=== PATIENT | female | born 1965 | race Caucasian/White ===

== ENCOUNTER → 2020-12-30 12:31 | Outpatient (CLI) | payer OTHER, SELFPAY ==
--- NOTE | ~2020-12-30 | XR_ITS ---
XR wrist RT w scaphoid DATE: 12/30/2020 13:11 INDICATION: Right wrist pain TECHNIQUE: 6 views COMPARISON: None FINDINGS: No recent fracture or dislocation, periosteal reaction or bone destruction. Accessory ossic les are noted near the ulnar styloid process. Mild osteoarthritic change at the first carpometacarpal joint. No fracture or dislocation or bone destruction of the scaphoid. IMPRESSION: Osteoarthritis at first carpometacarpal joint Reviewed, dictated and finalized at location A. ING SECRETARY
== END ==
PROVIDERS: PCP Family Medicine; Visit Provider Physician Assistant
DX: M19.031 Primary osteoarthritis, right wrist (principal)
CPT/HCPCS: 73110

== ENCOUNTER 2021-04-14 11:07 | Outpatient (CLI) | payer OTHER, SELFPAY ==
--- NOTE | 2021-04-21 16:12 | WPDHOLTEREM ---
Holter/Event Monitor Holter/Event Monitor Date of procedure: 04/14/21 Procedure Type: 24 hour holter monitor Indications: Palpitations Conclusion: 1. 24 hour holter monitor on 04/14/21. 2. Underlying rhythm is sinus rhythm. HR range 51-132 bpm; average HR 73 bpm. 3. There are 31 premature supraventricular complexes, 5 supraventricular couplets and 2 supraventricular triplets. No supraventricular tachycardia. 4. There are 4 premature ventricular complexes. No ventricular tachycardia. 5. No sinoatrial or atrioventricular blocks. No significant pauses greater than 2 seconds. 6. Patient reports an episode of symptom of dizziness which demonstrate sinus rhythm at 74 bpm.
== END 2021-04-14 11:08 | disposition home or self-care (01) ==
PROVIDERS: PCP Family Medicine; Visit Provider Family Medicine
DX: R00.2 Palpitations (principal)
CPT/HCPCS: 93225; 93226

== ENCOUNTER 2023-04-07 10:28 | Outpatient (NON) | payer OTHER, SELFPAY | END 2023-04-07 10:29 | disposition home or self-care (01) | LOC: ANHLAB 04-08 10:29 | PROVIDERS: Visit Provider Nurse Practitioner | DX: D49.2 Neoplasm of unspecified behavior of bone, soft tissue, and skin (principal) | CPT/HCPCS: 88305 ==

== ENCOUNTER 2025-05-28 00:15 | Day surgery (SDC) | payer OTHER, SELFPAY ==
[2025-05-14 15:15] VITALS: BMI 25.4
--- OUTSIDE RECORDS SUMMARY | 2025-05-28 00:18 | XMS_ITS | Encounter Summary ---
Author Organization [facility] Address [address] [place] [address] Care Team Providers Care Truck Washer Name Role Phone Cam Dubon MD Primary Care Provider [phone] [phone] Encounter Details Date Type Department Care Team (Latest Contact Info) Description 07/24/2001 Outpatient Historical HIS [facility] Zeferino Espinosa MD [address] [facility] [address] [place] [address] Lump or mass in breast (Primary Dx) Social History Tobacco Use Types Packs/Day Years Used Date Smoking Tobacco: Never Assessed Comments Unknown Sex and Gender Information Value Date Recorded Sex Assigned at Not on file Legal Sex Female 4:25 AM LOOM DOFFER Gender Identity Not on file Sexual Orientation Not on file documented as of this encounter Plan of Treatment Not on file documented as of this encounter Visit Diagnoses Diagnosis Lump or mass in breast- Primary documented in this encounter Care Teams Truck Washer Relationship Specialty Start Date End Date Cam Dubon MD [address] [place] [address] PCP - General 10/26/00 documented as of this encounter
--- OUTSIDE RECORDS SUMMARY | 2025-05-28 00:18 | XMS_ITS | Clinical Summary ---
Author Organization [facility] Address [address] [place] [address] Phone Care Team Providers Care Dairy Processing Supervisor Name Role Phone Cam Dubon MD Primary Care Provider Allergies No known active allergies Medications BUPROPION HCL (WELLBUTRIN XL ORAL) Take by mouth. Active amitriptyline-ch lordiazePOXIDE (LIMBITROL) 12.5-5 mg Oral Tab Take 2 Tabs by mouth. Active HYDROcodone-acet aminophen (VICODIN) 5-500 mg Oral tablet Take 1-2 Tabs by mouth every 4 hours as needed for Pain. 30 Tab 2 03/22/2011 Active Active Problems Problem Noted Date Diagnosed Date Breast mass 03/22/2011 Encounters Date Type Department Care Team Description 04/30/2025 External Device Data [facility] ABSTRACTION Provider, Abstract 04/02/2025 External Device Data [facility] ABSTRACTION Provider, Abstract 03/27/2025 External Device Data [facility] ABSTRACTION Provider, Abstract 03/27/2025 External Device Data [facility] ABSTRACTION Provider, Abstract from Last 3 Months Family History Medical History Relation Name Comments Breast Cancer Neg Hx Cancer Neg Hx Ovarian Cancer Neg Hx Social History Tobacco Use Types Packs/Day Years Used Date Smoking Tobacco: Never Alcohol Use Standard Drinks/Week Comments Yes 3.3 (1 standard drink = 0.6 oz p ure alcohol) Comments Unknown Sex and Gender Information Value Date Recorded Sex Assigned at Not on file Legal Sex Female 4:25 AM CLIENT SUCCESS DIRECTOR Gender Identity Not on file Sexual Orientation Not on file Occupation Industry Job Start Date Job End Date Not on file Not on file Not on file Not on file Last Filed Vital Signs Vital Sign Reading Time Taken Comments Blood Pressure 119/67 03/22/2011 11:05 AM CDT Pulse 68 03/22/2011 11:05 AM CDT Temperature - - Respiratory Rate 16 03/22/2011 11:05 AM CDT Oxygen Saturation 100% 03/22/2011 11:05 AM CDT Inhaled Oxygen Concentration - - Weight 59 kg (130 lb) 03/18/2011 2:21 PM CDT Height 175.3 cm (5' 9) 03/18/2011 2:21 PM CDT Body Mass Index 19.2 03/18/2011 2:21 PM CDT Plan of Treatment Health Maintenance Due Date Last Done Comments DTAP/TDAP/TD VACCINES (1 - Tdap) 1983 HPV/Cotest (21-29) 1985 CERVICAL CANCER SCREENING 1994 HPV/Cotest (30-65) 1994 PAP SMEAR 1994 COLORECTAL SCREENING 2009 Colorectal Cancer Screening 2009 FIT-DNA Q 3 years 2009 FIT/FOBT Q 1 year 2009 Flex Sig/CT Colonography Q 5 years 2009 ZOSTER VACCINE (1 of 2) 2014 INFLUENZA VACCINE (#1) 2025 BREAST CANCER SCREENING 10/22/2025 10/22/20 24, 10/13/2023, 09/24/2022, Additional history exists RSV VACCINE (60+ or ) (1 - 1-dose 75+ series) 2039 HEPATITIS B VACCINES Aged Out No long er eligible based on patient's age to complete this topic Procedures Procedure Name Priority Date/Time Associated Diagnosis Comments MAMMO 3D TAMARA SCREEN BILAT W OR WO CAD Routine 10/22/2024 11:19 AM CLIENT SUCCESS DIRECTOR Encounter for mammogram to establish baseline mammogram from Last 3 Months or Most Recently Relevant to Health Maintenance Results * MAMMO 3D TAMARA SCREEN BILAT W OR WO CAD (10/22/2024 11:19 AM CLIENT SUCCESS DIRECTOR) Anatomical Region Laterality Modality Breast Bilateral Mammography 10/22/2024 11:1 9 AM CLIENT SUCCESS DIRECTOR Impressions 10/22/2024 11:43 AM CLIENT SUCCESS DIRECTOR IMPRESSION: No mammographic evidence of malignancy in the bilateral breasts. Routine screening mammography is recommended in one year. OVERALL FINAL ASSESSMENT: BI-RADS CATEGORY 1 - Negative DICTATION LOCATION: Padmini Peralta Narrative 10/22/2024 11:43 AM CLIENT SUCCESS DIRECTOR EXAMINATION: BILATERAL SCREENING DIGITAL MAMMOGRAPHY WITH TOMOSYNTHESIS AND CAD DATE: 10/22/2024 11:19 AM HISTORY: Routine screening mammography. COMPARISON: Mammography with dates ranging from 10/13/2023 to 07/24/2019. TECHNIQUE: A bilateral screening mammogram was performed. Low-dose full-field digital breast tomosynthesis examination was performed with 2D and 3D acquisitions. Examination is read in conjunction with computer aided detection. BREAST COMPOSITION: There are scattered areas of fibroglandular density. FINDINGS: There are no suspicious masses, suspicious calcifications, or other suspicious findings in either breast. There has been no suspicious interval change. Computer aided detection was used in the interpretation of this examination. Procedure Note Vikas Pretty MD - 10/22/2024 EXAMINATION: BILATERAL SCREENING DIGITAL MAMMOGRAPHY WITH TOMOSYNTHESIS AND CAD DATE: 10/22/2024 11:19 AM HISTORY: Routine screening mammography. COMPARISON: Mammography with dates ranging from 10/13/2023 to 07/24/2019. TECHNIQUE: A bilateral screening mammogram was performed. Low-dose full-field digital breast tomosynthesis examination was performed with 2D and 3D acquisitions. Examination is read in conjunction with computer aided detection. BREAST COMPOSITION: There are scattered areas of fibroglandular density. FINDINGS: There are no suspicious masses, suspicious calcifications, or other suspicious findings in either breast. There has been no suspicious interval change. Computer aided detection was used in the interpretation of this examination. IMPRESSION: No mammographic evidence of malignancy in the bilateral breasts. Routine screening mammography is recommended in one year. OVERALL FINAL ASSESSMENT: BI-RADS CATEGORY 1 - Negative DICTATION LOCATION: Padmini Peralta us Zeferino Santos MD MAMMO ORDERABLES Final Resul t from Last 3 Months or Most Recently Relevant to Health Maintenance Insurance [place] [id number] Advance Directives For more information, please contact: [phone] * Full Code (Latest Code Status on File) Date Activated Date Inactivated Comments 03/22/2011 11:04 AM 03/22/2011 1:16 PM * Full Code Date Activated Date Inactivated Comments 03/22/2011 10:01 AM 03/22/2011 11:04 AM Care Teams Dairy Processing Supervisor Relationship Specialty Start Date End Date Cam Dubon MD [address] [place] [address] PCP - General 10/26/00
--- OUTSIDE RECORDS SUMMARY | 2025-05-28 00:18 | XMS_ITS | Encounter Summary ---
Author Organization [facility] Address [address] [place] [address] Care Team Providers Care Annealer Helper Name Role Phone Cam Dubon MD Primary Care Provider [phone] Encounter Details Date Type Department Care Team (Latest Contact Info) Description 12/18/2001 Outpatient Historical HIS [facility] Zeferino Espinosa MD [address] [facility] [address] [place] [address] LUMP OR MASS IN BREAST (Primary Dx) Social History Tobacco Use Types Packs/Day Years Used Date Smoking Tobacco: Never Assessed Comments Unknown Sex and Gender Information Value Date Recorded Sex Assigned at Not on file Legal Sex Female 4:25 AM PIPE STRIPPER Gender Identity Not on file Sexual Orientation Not on file documented as of this encounter Plan of Treatment Not on file documented as of this encounter Visit Diagnoses Diagnosis Lump or mass in breast- Primary documented in this encounter Care Teams Annealer Helper Relationship Specialty Start Date End Date Cam Dubon MD [address] [place] [address] PCP - General 10/26/00 documented as of this encounter
--- OUTSIDE RECORDS SUMMARY | 2025-05-28 00:18 | XMS_ITS | Encounter Summary ---
Author Organization [employer] Address [address] [place] [address] Care Team Providers Care Cloth Bleaching Range Operator Chief Name Role Phone Cam Dubon MD Primary Care Provider [phone] Encounter Details Date Type Department Care Team (Latest Contact Info) Description 03/14/1999 Inpatient Historical HIS PAT[facility] IN A BED Zeferino Santos MD [address] [facility] [address] [place] [address] Other and unspecified cord entanglement, without mention of compression, complicating labor and delivery, delivered (Primary Dx) Social History Tobacco Use Types Packs/Day Years Used Date Smoking Tobacco: Never Assessed Comments Unknown Sex and Gender Information Value Date Recorded Sex Assigned at Not on file Legal Sex Female 4:25 AM PULLER THROUGH Gender Identity Not on file Sexual Orientation Not on file documented as of this encounter Plan of Treatment Not on file documented as of this encounter Visit Diagnoses Diagnosis Other and unspecified cord entanglement, without mention of compression, complicating labor and delivery, delivered- Primary documented in this encounter Care Teams Cloth Bleaching Range Operator Chief Relationship Specialty Start Date End Date Cam Dubon MD [address] [place] [id number] PCP - General 10/26/00 documented as of this encounter
--- OUTSIDE RECORDS SUMMARY | 2025-05-28 00:18 | XMS_ITS | Encounter Summary ---
Author Organization [facility] Address [address] [place] [address] Care Team Providers Care In Home Baby Sitter Name Role Phone Cam Dubon MD Primary Care Provider [phone] Encounter Details Date Type Department Care Team (Latest Contact Info) Description 02/03/2006 Outpatient Historical HIS [facility] Zeferino Espinosa MD [address] [facility] [address] [place] [address] Other Screening Mammogram (Primary Dx) Social History Tobacco Use Types Packs/Day Years Used Date Smoking Tobacco: Never Assessed Comments Unknown Sex and Gender Information Value Date Recorded Sex Assigned at Not on file Legal Sex Female 4:25 AM COOKING APPLIANCE REPAIR TECHNICIAN Gender Identity Not on file Sexual Orientation Not on file documented as of this encounter Plan of Treatment Not on file documented as of this encounter Visit Diagnoses Diagnosis Other screening mammogram- Primary documented in this encounter Care Teams In Home Baby Sitter Relationship Specialty Start Date End Date Cam Dubon MD [address] [place] [address] PCP - General 10/26/00 documented as of this encounter
--- OUTSIDE RECORDS SUMMARY | 2025-05-28 00:18 | XMS_ITS | Encounter Summary ---
Author Organization [facility] Address [address] [place] [address] Care Team Providers Care Lone Lead Lineman Name Role Phone Cam Dubon MD Primary Care Provider [phone] Encounter Details Date Type Department Care Team (Latest Contact Info) Description 03/11/2009 Outpatient Historical HIS [facility] Chantel Espinosa MD [address] [facility] [address] [place] [address] Abnormal Mammogram, Unspecified Social History Tobacco Use Types Packs/Day Years Used Date Smoking Tobacco: Never Assessed Comments Unknown Sex and Gender Information Value Date Recorded Sex Assigned at Not on file Legal Sex Female 4:25 AM COLORING MACHINE OPERATOR Gender Identity Not on file Sexual Orientation Not on file documented as of this encounter Plan of Treatment Not on file documented as of this encounter Procedures Procedure Name Priority Date/Time Associated Diagnosis Comments MAMMO DIAGNOSTIC UNI RIGHT W OR WO CAD Routine 03/11/2009 12:18 PM CDT documented in this encounter Results * MAMMO DIGITAL DIAG UNI RIGHT (03/11/2009 12:18 PM CDT) Anatomical Region Laterality Modality Breast Right Other 03/11/2009 12:1 8 PM CDT Narrative 03/12/2009 8:26 AM CDT [facility] [address] [place], [place] [address] Admit Date: 03/11/2009 YUN PARRY Sex: F Admit Prov: CHANTEL CERVANTES Date: 1965 Primary Care Prov: CAM DUBON CMRN: [id number] Room: BARBRA SSN: [id number] IMAGING SERVICES Ordering Prov: CHANTEL CERVANTES Accession Number: [id number] Interpretation RIGHT DIAGNOSTIC DIGITAL MAMMOGRAMS WITH COMPUTER ASSISTED DIAGNOSIS 03/11/2009 Reason for this examination: Abnormal screening study The screening mammograms from 03/05/2009 show possible mass in the upper outer quadrant of the right breast Diagnostic images were obtained including compression spot views. The parenchyma is moderately dense. There is no discrete mass, distortion, malignant calcifications or other sign of malignancy. The images were reviewed using the CAD system. The area of concern on screening mammograms is much less apparent. This now is similar in appearance to mammograms from 2006 and 2007. This is thought to be fibroglandular tissue. Conclusion: No mammographic evidence of malignancy Area of concern on the screening mammograms is not reproducible. Recommendations: The patient should resume screening mammography in February 2010 Overall assessment: BIRADS category 1 - Negative Assessment BIRADS: 1-Negative Recommendation: Normal interval follow-up Dictated by: JAIME MENDEZ Electronically signed by: JAIME MENDEZ 03/12/2009 08:26 Transcribed: 03/11/2009 21:44 AMK Procedure Note Jaime Mendez MD - 03/12/[address] [address] Admit Date: 03/11/2009 YUN PARRY Sex: F Admit Prov: CHANETL CERVANTES Date: 1965 Primary Care Prov: CAM DUBON CMRN: [id number] Room: CURLYShweta SSN: [id number] IMAGING SERVICES Ordering Prov: CHANTEL CERVANTES Interpretation RIGHT DIAGNOSTIC DIGITAL MAMMOGRAMS WITH COMPUTER ASSISTEDDIAGNOSIS 03/11/2009 Reason for this examination: Abnormal screening study The screening mammograms from 03/05/2009 show possible mass in theupper outer quadrant of the right breast Diagnostic images were obtained including compression spot views.The parenchyma is moderately dense. There is no discrete mass,distortion, malignant calcifications or other sign of malignancy. The imageswere reviewed using the CAD system. The area of concern on screening mammograms is much less apparent.This now is similar in appearance to mammograms from 2006 and 2007. This isthought to be fibroglandular tissue. Conclusion: No mammographic evidence of malignancy Area of concern on the screening mammograms is not reproducible. Recommendations: The patient should resume screening mammography inApril 2009 Overall assessment: BIRADS category 1 - Negative Assessment BIRADS: 1-Negative Recommendation: Normal interval follow-up Dictated by: JAIME MENDEZ Electronically signed by: JAIME MENDEZ 03/12/2009 08:26 Transcribed: 03/11/2009 21:44 AMK us Chantel Cervantes MD MAMMO ORDERABLES Final Resul t documented in this encounter Visit Diagnoses Diagnosis Abnormal mammogram, unspecified documented in this encounter Care Teams Lone Lead Lineman Relationship Specialty Start Date End Date Cam Dubon MD [address] [address] PCP - General 10/26/00 documented as of this encounter
--- OUTSIDE RECORDS SUMMARY | 2025-05-28 00:18 | XMS_ITS | Encounter Summary ---
Author Organization [facility] Address [address] [place] [address] Care Team Providers Care Anode Rebuilder Name Role Phone Cam Dubon MD Primary Care Provider [phone] Encounter Details Date Type Department Care Team (Latest Contact Info) Description 02/21/2007 Outpatient Historical HIS [facility] Zeferino Espinosa MD [address] [facility] [address] [place] [address] Other Screening Mammogram (Primary Dx) Social History Tobacco Use Types Packs/Day Years Used Date Smoking Tobacco: Never Assessed Comments Unknown Sex and Gender Information Value Date Recorded Sex Assigned at Not on file Legal Sex Female 4:25 AM INTELLECTUAL PROPERTY LEGAL ASSISTANT Gender Identity Not on file Sexual Orientation Not on file documented as of this encounter Plan of Treatment Not on file documented as of this encounter Visit Diagnoses Diagnosis Other screening mammogram- Primary documented in this encounter Care Teams Anode Rebuilder Relationship Specialty Start Date End Date Cam Dubon MD [address] [place] [address] PCP - General 10/26/00 documented as of this encounter
--- OUTSIDE RECORDS SUMMARY | 2025-05-28 00:18 | XMS_ITS | Encounter Summary ---
Author Organization [facility] Address [address] [place] [address] Care Team Providers Care Product Evangelist Name Role Phone Cam Dubon MD Primary Care Provider [phone] Encounter Details Date Type Department Care Team (Latest Contact Info) Description 11/29/2002 Outpatient Historical HIS [facility] Zeferino Espinosa MD [address] [facility] [address] [place] [address] SCREENING MAMM-MAILG NEOPL-OTHER (Primary Dx) Social History Tobacco Use Types Packs/Day Years Used Date Smoking Tobacco: Never Assessed Comments Unknown Sex and Gender Information Value Date Recorded Sex Assigned at Not on file Legal Sex Female 4:25 AM TERRAZZO POLISHER Gender Identity Not on file Sexual Orientation Not on file documented as of this encounter Plan of Treatment Not on file documented as of this encounter Visit Diagnoses Diagnosis Other screening mammogram- Primary documented in this encounter Care Teams Product Evangelist Relationship Specialty Start Date End Date Cam Dubon MD [address] [place] [address] PCP - General 10/26/00 documented as of this encounter
--- OUTSIDE RECORDS SUMMARY | 2025-05-28 00:18 | XMS_ITS | Encounter Summary ---
Author Organization [facility] Address [address] [place] [address] Care Team Providers Care Felt Cementer Name Role Phone Cam Dubon MD Primary Care Provider [phone] Encounter Details Date Type Department Care Team (Latest Contact Info) Description 02/26/2008 Outpatient Historical HIS [facility] DEVYN Cervantes, Chantel Pfeiffer MD [address] [facility] [address] [place] [address] Other Screening Mammogram Social History Tobacco Use Types Packs/Day Years Used Date Smoking Tobacco: Never Assessed Comments Unknown Sex and Gender Information Value Date Recorded Sex Assigned at Not on file Legal Sex Female 4:25 AM PRESS SMITH HELPER Gender Identity Not on file Sexual Orientation Not on file documented as of this encounter Plan of Treatment Not on file documented as of this encounter Procedures Procedure Name Priority Date/Time Associated Diagnosis Comments MAMMO SCREEN BILAT W OR WO CAD Timed Study 02/26/2008 12:24 PM CDT documented in this encounter Results * MAMMO DIGITAL SCREEN BILAT (02/26/2008 12:24 PM CDT) Anatomical Region Laterality Modality Breast Bilateral Other 02/26/2008 12:2 4 PM CDT Narrative 02/27/2008 8:10 AM CDT [facility] [address] [place], [place] [address] Admit Date: 02/26/2008 YUN PARRY Sex: F Admit Prov: PIGNOTTI, BLASE J Date: 1965 Primary Care Prov: CAM DUBON CMRN: [id number] Room: BARBRA N: [id number] IMAGING SERVICES Ordering Prov: CHANTEL CERVANTES Accession Number: [id number] Interpretation BILATERAL SCREENING DIGITAL MAMMOGRAMS WITH COMPUTER ASSISTED DIAGNOSIS, 02/26/2008 Clinical History: Screening. Findings: Craniocaudal and mediolateral oblique compression views of the breasts on 02/26/2008 are compared to 02/21/2007 and 02/03/2006. The breast parenchymal pattern demonstrates scattered fibroglandular densities. No suspicious dominant mass lesions, clustered microcalcifications, or architectural distortion is seen. A circumscribed nodular density is noted in the posterior right upper-outer quadrant, unchanged. Overall, there is no significant interval change. The CAD system was utilized. Impression: No radiographic evidence of malignancy. Recommendation: Routine yearly followup mammography is recommended. Assessment BIRADS: 2-Benign finding Recommendation: Normal interval follow-up Dictated by: OPAL KELLER Electronically signed by: OPAL KELLER 02/27/2008 08:10 Transcribed: 02/26/2008 20:14 DKT Procedure Note Opal Keller MD - 02/27/2008 [address] [address] [place], [place] [address] Admit Date: 02/26/2008 YUN PARRY Sex: F Admit Prov: CHANTEL CERVANTES Date: 1965 Primary Care Prov: CAM DUBON CMRN: [id number] Room: BARBRA N: [id number] IMAGING SERVICES Ordering Prov: CHANTEL CERVANTES Interpretation BILATERAL SCREENING DIGITAL MAMMOGRAMS WITH COMPUTER ASSISTEDDIAGNOSIS, 02/26/2008 Clinical History: Screening. Findings: Craniocaudal and mediolateral oblique compression views of thebreasts on 02/26/2008 are compared to 02/21/2007 and 02/03/2006. The breastparenchymal pattern demonstrates scattered fibroglandular densities. Nosuspicious dominant mass lesions, clustered microcalcifications, orarchitectural distortion is seen. A circumscribed nodular density is noted in the posterior right upper-outer quadrant, unchanged. Overall, there isno significant interval change. The CAD system was utilized. Impression: No radiographic evidence of malignancy. Recommendation: Routine yearly followup mammography is recommended. Assessment BIRADS: 2-Benign finding Recommendation: Normal interval follow-up Dictated by: OPAL KLELER Electronically signed by: OPAL KELLER 02/27/200808:10 Transcribed: 02/26/2008 20:14 DKT us Chantel Cervantes MD MAMMO ORDERABLES Final Resul t documented in this encounter Visit Diagnoses Diagnosis Other screening mammogram documented in this encounter Care Teams Felt Cementer Relationship Specialty Start Date End Date Cam Dubon MD [address] [place] [address] PCP - General 10/26/00 documented as of this encounter
--- OUTSIDE RECORDS SUMMARY | 2025-05-28 00:18 | XMS_ITS | Encounter Summary ---
Author Organization [facility] Address [address] [place] [address] Care Team Providers Care Deaf Interpreter Name Role Phone Cam Dubon MD Primary Care Provider [phone] Encounter Details Date Type Department Care Team (Latest Contact Info) Description 01/29/2004 Outpatient Historical HIS [facility] Zeferino Espinosa MD [address] [facility] [address] [place] [address] SCREENING MAMM-MAILG NEOPL-OTHER (Primary Dx) Social History Tobacco Use Types Packs/Day Years Used Date Smoking Tobacco: Never Assessed Comments Unknown Sex and Gender Information Value Date Recorded Sex Assigned at Not on file Legal Sex Female 4:25 AM HAM PUMPER Gender Identity Not on file Sexual Orientation Not on file documented as of this encounter Plan of Treatment Not on file documented as of this encounter Visit Diagnoses Diagnosis Other screening mammogram- Primary documented in this encounter Care Teams Deaf Interpreter Relationship Specialty Start Date End Date Cam Dubon MD [address] [place] [address] PCP - General 10/26/00 documented as of this encounter
--- OUTSIDE RECORDS SUMMARY | 2025-05-28 00:18 | XMS_ITS | Encounter Summary ---
Author Organization [facility] Address [address] [place] [address] Care Team Providers Care Car Shifter Name Role Phone Cam Dubon MD Primary Care Provider [phone] Encounter Details Date Type Department Care Team (Latest Contact Info) Description 02/03/2005 Outpatient Historical HIS [facility] Zeferino Espinosa MD [address] [facility] [address] [place] [address] SCREENING MAMM-MAILG NEOPL-OTHER (Primary Dx) Social History Tobacco Use Types Packs/Day Years Used Date Smoking Tobacco: Never Assessed Comments Unknown Sex and Gender Information Value Date Recorded Sex Assigned at Not on file 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
--- OUTSIDE RECORDS SUMMARY | 2025-05-28 00:18 | XMS_ITS | Encounter Summary ---
Author Organization [email or web address] Address 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
--- OUTSIDE RECORDS SUMMARY | 2025-05-28 00:18 | XMS_ITS | Encounter Summary ---
Author Organization [facility] Address 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 [place], [place] [address] Admit Date: 03/05/2009 YUN PARRY Sex: F Admit Prov: CHANTEL CERVANTES Date: 1965 Primary Care Prov: CAM DUBON CMRN: [id number] Room: BARBRA N: [id number] IMAGING SERVICES Ordering Prov: CHANTEL CERVANTES Accession Number: [id number] Interpretation BILATERAL SCREENING DIGITAL MAMMOGRAMS WITH COMPUTER ASSISTED DIAGNOSIS 03/05/2009 History: Annual screening Findings: Comparison study is dated 02/26/2008. There are scattered fibroglandular tissues bilaterally. A focal asymmetric density in the upper-outer quadrant of the right breast is seen at the posterior depth. It is not well visualized on the previous study. No malignant calcifications or architectural distortion is seen. The left breast is unremarkable. The images were reviewed using the CAD system. IMPRESSION: A focal asymmetric density in the right breast. Recommendations: Spot compression views and ultrasound. Assessment BIRADS: 0-Incomplete: Need additional imaging evaluation Recommendation: Spot compression Ultrasound Dictated by: MARYSOL HARDIN Electronically signed by: MARYSOL HARDIN 03/05/2009 16:44 Transcribed: 03/05/2009 16:41 AMK Procedure Note Marysol Enamorado MD - 03/05/2009 [facility] [address] [place], [place] [address] Admit Date: 03/05/2009 YUN PARRY Sex: F Admit Prov: CHANTEL CERVANTES Date: 1965 Primary Care Prov: CAM DUBON CMRN: [id number] Room: BARBRA N: [id number] IMAGING SERVICES Ordering Prov: CHANTEL CERVANTES Interpretation BILATERAL SCREENING DIGITAL MAMMOGRAMS WITH COMPUTER ASSISTEDDIAGNOSIS 03/05/2009 History: Annual screening Findings: Comparison study is dated 02/26/2008. There are scattered fibroglandular tissues bilaterally. A focal asymmetric density inthe upper-outer quadrant of the right breast is seen at the posteriordepth. It is not well visualized on the previous study. No malignantcalcifications or architectural distortion is seen. The left breast is unremarkable.The images were reviewed using the CAD system. IMPRESSION: A focal asymmetric density in the right breast. Recommendations: Spot compression views and ultrasound. Assessment BIRADS: 0-Incomplete: Need additional imagingevaluation Recommendation: Spot compression Ultrasound Dictated by: MARYSOL HARDIN Electronically signed by: MARYSOL HARDIN 03/05/2009 16:44 Transcribed: 03/05/2009 16:41 AMK us Chantel Cervantes MD MAMMO ORDERABLES Final Resul t documented in this encounter Visit Diagnoses Diagnosis Other screening mammogram documented in this encounter Care Teams Kiln Door Builder Relationship Specialty Start Date End Date Cam Dubon MD [address] [place] [id number] PCP - General 10/26/00 documented as of this encounter
--- OUTSIDE RECORDS SUMMARY | 2025-05-28 00:18 | XMS_ITS | Clinical Summary ---
Author Organization [facility] Address [address] [place] [address] [place] [address] Care Team Providers Care Solar Business Developer Name Role Phone Ambrose Dubon MD Primary Care Provider [phone] Source Comments [facility],non-owned Affiliates and Associated Physician Practices is amultiple site organization consisting of ambulatory clinics and hospital sitesin [place], [place], [place] and [place]. This disclosure is being madepursuant to the Care Everywhere program and may not contain all information available regarding this patient. Last updated 18.[facility] Allergies No known active allergies Medications * Be aware that medications may not be up to date on this document. Alwaysverify current medications with the patient. buPROPion XL 24hr (WELLBUTRIN-XL) 300 MG tablet Take 300 mg by mouth once daily 9 Active omeprazole (PRILOSEC) 20 MG capsule 9 Active clindamycin (CLEOCIN) 1 % lotionIndicatio ns:Acne vulgaris Apply to affected area daily. 30 day supply. 60 mL 11 0 Active chlordiazePOXID E-amitriptyline (LIMBITROL DS) 10-25 MG tablet Take 1 tablet by mouth nightly as needed For sleep. 1 Active liothyronine (CYTOMEL) 5 MCG tablet Take 1 tablet by mouth once daily 1 Active bimatoprost (LATISSE) 0.03 % solution 1 drop by Apply externally route once daily 5 mL 4 1 Active spironolactone (ALDACTONE) 100 MG tabletIndicatio ns:Acne vulgaris Take 2 (two) tablets by mouth once daily 60 tablet 3 1 Active Tretinoin (ALTRENO) 0.05 % lotionIndicatio ns:Acne vulgaris Apply pea sized amount to face nightly 45 g 11 1 Active Active Problems Problem Noted Date Diagnosed Date Acne scarring 10/20/2021 Lentigines 01/12/2021 Assessment & Plan (01/12/2021 12:22 PM SALES PLANNING ANALYST): - Explained benign nature, reassurance provided. - Advised pt on consistent sunscreen use (SPF > 30, UVA + UVB). García angioma 01/12/2021 Assessment & Plan (01/12/2021 12:23 PM SALES PLANNING ANALYST): - Benign, reassurance Carpal tunnel syndrome of right wrist 03/15/2019 Tension type headache 03/21/2018 Other seborrheic keratosis 01/06/2018 Assessment & Plan (01/12/2021 12:20 PM SALES PLANNING ANALYST): - Benign, reassurance Melanocytic nevi of lower extremity or hip 01/06 Melanocytic nevi of trunk 01/06/2018 Melanocytic nevi of unspecif ied upper limb, including shoulder 01/06/2018 Nevus, non-neoplastic 01/06/2018 Multiple benign melanocytic nevi of upper extremity, lower extremity, and trunk 01/06/2018 Assessment & Plan (01/12/2021 12:21 PM SALES PLANNING ANALYST): - Benign, reassurance Acne vulgaris 03/31/2016 Assessment & Plan (01/12/2021 12:22 PM SALES PLANNING ANALYST): Mild - Well-controlled on current regimen; patient satisfied with treatment - Continue spironolactone 200mg daily - Continue clindamycin 1% lotion daily - Continue Altreno lotion every other night - Continue non-comedogenic skin care products History of basal cell carcinoma (BCC) 09/10/2014 Assessment & Plan (01/12/2021 12:22 PM SALES PLANNING ANALYST): - No evidence of recurrence - Q6mos FBSE Migraine, unspecified, not i ntractable, without status migrainosus 07/30/2014 Basal cell carcinoma of skin of other parts of f johan 03/05/2013 Dissection of carotid artery 03/05/2013 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 05/11/2012 Breast mass 03/22/2011 Resolved Problems Problem Noted Date Diagnosed Date Resolved Date Constipation 03/15/2019 02/08/2020 Immunizations Immunization Administration Dates Next Due INFLUENZA VACCINE 10/04/2021,2020,09/21/20 19 Family History Medical History Relation Name Comments Cancer Father Status: d None Known Mother Status: Alive Cancer - Skin, Melanoma Neg Hx Cancer - Skin, Non Melanoma Neg Hx Relation Name Status Comments Father Mother Social History Tobacco Use Types Packs/Day Years Used Date Smoking Tobacco: Former Smokeless Tobacco: Never Alcohol Use Standard Drinks/Week Comments Yes 0 (1 standard drink = 0.6 oz pur e alcohol) Comments Unknown Sex and Gender Information Value Date Recorded Sex Assigned at Not on file Legal Sex Female 5:24 PM SALES PLANNING ANALYST Gender Identity Not on file Sexual Orientation Not on file Plan of Treatment Health Maintenance Due Date Last Done Comments COLOGUARD (AGES 45-75) - COLON CA SCREENING 1965 COLON MONITORING 1965 COLONOSCOPY - COLON CA SCREENING 1964 CT COLONOGRAPHY - COLON CA SCREENING 1964 Colorectal Cancer Screening 1964 FIT - COLON CA SCREENING 1964 FLEX SIG - COLON CA SCREENING 1964 LIPID TESTING 1964 HIV SCREENING 1979 HEPATITIS C SCREENING 09/10/1982 DTAP/TDAP/TD VACCINES (1 - Tdap) 1983 PNEUMOCOCCAL VACCINE 50+ (1 of 1 - PCV) 2014 ZOSTER VACCINE (1 of 2) 2014 MAMMOGRAM 07/29/2022 07/29/2020 (Done Outside Per Report) COVID-19 VACCINE (2 - 2023- season) 2024 01/13/2021 DEPRESSION SCREENING 11/07/2024 INFLUENZA VACCINE (#1) 2025 , 2020, 09/21/2019, Additional history exists Respiratory Syncytial Virus (RSV) Vaccine Pt: or over 60 yrs (1 - 1-dose 75+ series) 2039 HEPATITIS B VACCINE Aged Out No longe r eligible based on patient's age to complete this topic HIB VACCINE Aged Out No longer eligi ble based on patient's age to complete this topic HPV VACCINE Aged Out No longer eligi ble based on patient's age to complete this topic MENINGOCOCCAL (Group B) VACCINE SHARED DECISION-MAKING Aged Out No longer eligible based on patient's age to complete this topic MENINGOCOCCAL GROUPS A/C/Y/W VACCINE Aged Out No longer eligible based on patient's age to complete this topic Insurance [employer] [place] [id number] [facility] [employer] [place] [id number] [facility] Care Teams Solar Business Developer Relationship Specialty Start Date End Date Ambrose Dubon MD [address] [place] [address] PCP - General 05/16/18
--- OUTSIDE RECORDS SUMMARY | 2025-05-28 00:18 | XMS_ITS | Encounter Summary ---
Author Organization [facility] Address 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
--- OUTSIDE RECORDS SUMMARY | 2025-05-28 00:18 | XMS_ITS | Encounter Summary ---
Author Organization [facility] Address [address] [facility] Attn: [place] [address] Care Team Providers Care Frequency Checker Name Role Phone Cam Dubon MD Primary Care Provider [phone] Encounter Details Date Type Department Care Team (Late st Contact Info) Description 07/08/1993 Outpatient Historical Zeferino Santos MD [address] [facility] [address] [place] [address] Social History Tobacco Use Types Packs/Day Years Used Date Smoking Tobacco: Never Assessed Comments Unknown Sex and Gender Information Value Date Recorded Sex Assigned at Not on file 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
[2025-05-28 11:39] VITALS: BP 118/50; PULSE 72; RESP 18; TEMP 37.1; O2SAT 100
[2025-05-28] MEDS: LACTATED RINGERS 1,000 ML 150 ML IV CONT (11:43)
--- NOTE | 2025-05-28 12:35 | P.PNAN_ITS ---
Anes - Initial Pre Proc Eval Procedure: Operation Date: 05/28/25 12:30 Proposed Procedures p Screening Colonoscopy - Ganesh Reece MD Date/Time: 05/28/25 12:35 Surgeon: Ganesh Reece MD Pre Op Diagnosis: Encounter for screening for malignant neoplasm of Patient Data Age: 59 Gender: F Height: 1.75 m Weight: 58.1 kg Last Vital Signs Temp 98.7 F 05/28/25 11:39 Pulse 72 05/28/25 11:39 Resp 18 05/28/25 11:39 BP 118/50 L 05/28/25 11:39 Pulse Ox 100 05/28/25 11:39 O2 Del Method Room Air 05/28/25 11:39 Allergies Allergy/AdvReac Type Severity Reaction Status Date / Time No Known Allergies Allergy Verified 05/28/25 11:35 Home Medications ?Medication ?Instructions ?Recorded ?Confirmed ?Type aspirin 325 mg tablet 325 mg PO .COMPLEX 03/15/22 05/28/25 History bimatoprost 0.03 % drops with 1 applic topical QHS #5 mL 11/09/22 05/28/25 Rx applicator, eyelash base (Latisse) vitamin B complex 1 tablet PO .QOD 05/18/24 05/28/25 History amitriptyline-chlordiazepoxide 25 1 tablet PO BID PRN migraine 02/05/25 05/14/25 Rx mg-10 mg tablet headache #180 tabs levothyroxine 25 mcg tablet 25 mcg PO DAILY 02/21/25 05/28/25 History liothyronine 25 mcg tablet 25 mcg PO DAILY 02/21/25 05/28/25 History tretinoin 0.05 % topical cream 1 applic topical QHS #45 grams 02/26/25 05/28/25 Rx omeprazole 20 mg capsule,delayed 20 mg PO DAILY #90 caps 04/10/25 05/28/25 Rx release famotidine 20 mg tablet (Acid 20 mg PO DAILY 05/14/25 05/28/25 History Controller) semaglutide (weight loss) 0.25 0.25 mg subcut WEEKLY 05/14/25 05/28/25 History mg/0.5 mL subcutaneous pen injector Patient hx anesthesia problems: none Family hx anesthesia problems: none Results Review: All pre-operative results and documents have been reviewed as part of the pre- operative evaluation. [facility] Past Medical History Medical History Wrist pain, acute Carotid artery dissection with hx of stroke 2011 Family History Family History Grandparent Diabetes mellitus Father Family history of lymphoma Family history of Hodgkin's lymphoma Social History Social History Smoking packs per day: 1 Smoking cigarettes per day: 20.0 Years smoked: 15 Smoking pack-years: 15.00 Smoking status: Former smoker Tobacco type: cigarettes Alcohol intake: current Drinks per week: 4 Alcohol use details: wine Substance use: never Substance use type: does not use Do You Feel Safe in your Home?: Yes Lack of Transportation: No Lack of Food: Never True Current Housing: I Have Housing Concerned About Future Housing: No Difficulty Paying Gas/Electric Bills: No Difficulty Paying for Meds: No Currently Unemployed: No Education: Master's Degree or Higher Difficulty w/ Childcare or Family Care: No Living arrangements: with family Spiritual care concerns: No Anes - Eval Final PreProcedure Day of Procedure 05/28/25 12:35 Patient weight: normal Lungs: normal air movement Airway: Mallampati scale class II Neurological: alert and oriented Last oral intake: >/= 8 hours ASA classification: II Emergent: no Anesthetic plan: proceed Anesthesia type and monitoring: general GIVS and standard monitoring Results Review: All pre-operative results and documents have been reviewed as part of the pre- operative evaluation. Hypothyroidism, ex smoker, quit 1999. Very active w P90X, no cp or sob. Informed Consent: The patient's anesthetic plan and its attendant risks and benefits were discussed with the patient/family/POA. Questions were solicited and answers provided to the satisfaction of the patient/family/POA.
--- NOTE | 2025-05-28 12:40 | PM.IMHP ---
H&P: HPI History of Present Illness Date/Time: 05/28/25 12:40 Chief Complaint: Screening colonoscopy Narrative: This is the patient's first colonoscopy. There are no GI symptoms and there is no family history of colorectal cancer. Review of Systems Review of Systems: All systems reviewed & are unremarkable except as noted in HPI and below PMFSH Past Medical History Medical History Wrist pain, acute Carotid artery dissection with hx of stroke 2011 Family History Family History Grandparent Diabetes mellitus Father Family history of lymphoma Family history of Hodgkin's lymphoma Social History Social History Smoking packs per day: 1 Smoking cigarettes per day: 20.0 Years smoked: 15 Smoking pack-years: 15.00 Smoking status: Former smoker Tobacco type: cigarettes Alcohol intake: current Drinks per week: 4 Alcohol use details: wine Substance use: never Substance use type: does not use Do You Feel Safe in your Home?: Yes Lack of Transportation: No Lack of Food: Never True Current Housing: I Have Housing Concerned About Future Housing: No Difficulty Paying Gas/Electric Bills: No Difficulty Paying for Meds: No Currently Unemployed: No Education: Master's Degree or Higher Difficulty w/ Childcare or Family Care: No Living arrangements: with family Spiritual care concerns: No Meds Home Medications and Allergies Home Medications ?Medication ?Instructions ?Recorded ?Confirmed ?Type aspirin 325 mg tablet 325 mg PO .COMPLEX 03/15/22 05/28/25 History bimatoprost 0.03 % drops with 1 applic topical QHS #5 mL 11/09/22 05/28/25 Rx applicator, eyelash base (Latisse) vitamin B complex 1 tablet PO .QOD 05/18/24 05/28/25 History amitriptyline-chlordiazepoxide 25 1 tablet PO BID PRN migraine 02/05/25 05/14/25 Rx mg-10 mg tablet headache #180 tabs levothyroxine 25 mcg tablet 25 mcg PO DAILY 02/21/25 05/28/25 History liothyronine 25 mcg tablet 25 mcg PO DAILY 02/21/25 05/28/25 History tretinoin 0.05 % topical cream 1 applic topical QHS #45 grams 02/26/25 05/28/25 Rx omeprazole 20 mg capsule,delayed 20 mg PO DAILY #90 caps 04/10/25 05/28/25 Rx release famotidine 20 mg tablet (Acid 20 mg PO DAILY 05/14/25 05/28/25 History Controller) semaglutide (weight loss) 0.25 0.25 mg subcut WEEKLY 05/14/25 05/28/25 History mg/0.5 mL subcutaneous pen injector Allergies Allergy/AdvReac Type Severity Reaction Status Date / Time No Known Allergies Allergy Verified 05/28/25 11:35 Vital Signs Vital Signs - 24 hr 05/28/25 11:39 Temperature 98.7 F Pulse Rate 72 Respiratory Rate 18 Blood Pressure 118/50 L Pulse Oximetry 100 Oxygen Delivery Room Air Exam Const: General: cooperative and healthy appearing Resp: Effort & Inspection: normal respiratory effort and able to speak in complete sentences Auscultation: clear to auscultation bilaterally Cardio: Rate: regular rate Rhythm: regular rhythm GI: Inspection: normal to inspection GI Palp: No No hepatosplenomegaly present Auscultation: normal bowel sounds Rectal Exam: deferred Skin: General skin exam: normal color Psych: Appearance: grossly normal Mental Status: mental status grossly normal Assessment and Plan Assessment and plan (1) Encounter for screening colonoscopy: Code(s): Z12.11 - Encounter for screening for malignant neoplasm of colon Status: Acute Assessment and Plan: The patient is deemed a good candidate for the procedure. Consent signed. Will proceed.
[2025-05-28 13:10] VITALS: BP 136/78; PULSE 66; RESP 17; O2SAT 99
[2025-05-28 13:20] VITALS: BP 133/68; PULSE 64; RESP 16; O2SAT 100
[2025-05-28 13:30] VITALS: BP 144/76; PULSE 62; RESP 18; O2SAT 100
== END 2025-05-28 13:40 | disposition home or self-care (01) ==
PROVIDERS: PCP Family Medicine; Referring Provider Family Medicine; Visit Provider Internal Medicine Gastroenterology
PROC: 0DJD8ZZ Inspection of Lower Intestinal Tract, Via Natural or Artificial Opening Endoscopic (ICD-10-PCS; CPT 45378; principal; 2025-05-28 12:30)
DX: Z12.11 Encounter for screening for malignant neoplasm of colon (principal); Z87.891 Personal history of nicotine dependence
CPT/HCPCS: 45378; J2003; J2704; J7120

== ENCOUNTER 2025-07-02 15:52 | Outpatient (CLI) | payer OTHER, SELFPAY ==
--- NOTE | ~2025-07-02 | XR_ITS ---
XR knee LT min 4V 07/02/2025 16:29 Indication: Sprain of left knee Procedure: 4 views left knee Comparison: No prior studies for comparison. Findings: There is ossification of the medial collateral ligament at the femoral level, consistent with remote injury. Mild tricompartment osteoarthritis. No joint effusion. No acute fracture or traumatic malalignment. Impression: 1: Mild tricompartment osteoarthritis. Reviewed, dictated and finalized at location O. Impression: 1: Mild tricompartment osteoarthritis.
== END 2025-07-02 15:53 | disposition home or self-care (01) ==
LOC: GOSHIMG 15:52
PROVIDERS: PCP Family Medicine; Visit Provider Family Medicine
DX: S83.92XA Sprain of unspecified site of left knee, initial encounter (principal); X58.XXXA Exposure to other specified factors, initial encounter
CPT/HCPCS: 73564